=== PATIENT | female | born 1945 | race Caucasian/White ===

== ENCOUNTER → 2018-02-18 | Outpatient (CLI) | payer MEDICARE ==
[2018-02-18 12:08] LABS: HEMATOCRIT 35.6 % (36.0-47.0); HEMOGLOBIN 12.4 g/dl (12.0-15.5); MEAN CORPUSCULAR HEMOGLOBIN 34.1 pg (27.0-33.0); MEAN CORPUSCULAR HGB CONC 34.8 g/dl (32.0-36.5); MEAN CORPUSCULAR VOLUME 97.8 fl (80.0-96.0); PLATELET COUNT, AUTOMATED 133 10^3/uL (150-450); RED BLOOD COUNT 3.64 10^6/uL (4.00-5.40); RED CELL DISTRIBUTION WIDTH 13.4 % (11.5-14.5); WHITE BLOOD COUNT 5.7 10^3/uL (4.0-10.0)
[2018-02-18 12:38] LABS: ALBUMIN 3.8 GM/DL (3.2-5.2); ALBUMIN/GLOBULIN RATIO 1.31 (1.00-1.93); ALKALINE PHOSPHATASE 88 U/L (45-117); ALT/SGPT 31 U/L (12-78); ANION GAP 7 MEQ/L (8-16); AST/SGOT 36 U/L (7-37); BILIRUBIN,TOTAL 0.7 MG/DL (0.2-1.0); BLOOD UREA NITROGEN 10 MG/DL (7-18); CALCIUM LEVEL 8.6 MG/DL (8.8-10.2); CARBON DIOXIDE LEVEL 28 MEQ/L (21-32); CHLORIDE LEVEL 102 MEQ/L (98-107); CREATININE FOR GFR 0.58 MG/DL (0.55-1.30); FOLATE 5.2 NG/ML (>5.4); GLOMERULAR FILTRATION RATE > 60.0 (>39); GLUCOSE, FASTING 130 MG/DL (70-100); IRON (FE) 148 UG/DL (50-170); PERCENT SATURATION 60.9 % (13.2-45.0); PHENYTOIN (DILANTIN) 15.1 UG/ML (10.0-20.0); SODIUM LEVEL 137 MEQ/L (136-145); TOTAL 25(OH) VITAMIN D 31.3 NG/ML (30.0-100.0); TOTAL IRON BINDING CAPACITY 243 UG/DL (250-450); TOTAL PROTEIN 6.7 GM/DL (6.4-8.2); VITAMIN B12 LEVEL 1163 PG/ML (247-911)
== END ==
LOC: M LAB 11:26
DX: D64.9 Anemia, unspecified (principal); E03.9 Hypothyroidism, unspecified
CPT/HCPCS: 80185

== ENCOUNTER 2018-04-14 06:36 | Day surgery (SDC) | payer MEDICARE ==
[2018-04-14] MEDS: NS 1,000 ML IV (07:00)
[2018-04-14] MEDS ORDERED: PROPOFOL 200 MG/20 ML VIAL As Ordered ×4 (07:23→08:44)
[2018-04-14] MEDS ORDERED: LIDOCAINE 1% MDV 20ML VIAL As Ordered (07:24)
== END 2018-04-14 09:31 | disposition home or self-care (01) ==
LOC: M OPP 06:36
DX: Z12.11 Encounter for screening for malignant neoplasm of colon (principal); D12.6 Benign neoplasm of colon, unspecified; D12.0 Benign neoplasm of cecum; R06.83 Snoring; I10 Essential (primary) hypertension; E78.00 Pure hypercholesterolemia, unspecified; Z79.82 Long term (current) use of aspirin; Z79.899 Other long term (current) drug therapy; Z86.69 Personal history of other diseases of the nervous system and sense organs; Z86.73 Personal history of transient ischemic attack (TIA), and cerebral infarction without residual deficits; Z91.89 Other specified personal risk factors, not elsewhere classified
CPT/HCPCS: 45385

== ENCOUNTER → 2019-04-15 | Outpatient (CLI) | payer MEDICARE ==
[~2019-04-15] MED LIST: AMLO2.5T3 PO; ASPI81TA26 PO; ATOR1TAB19 PO; DILA100C PO; DIOV80TA3 PO; KLOR10TA76 PO; LABE10TAB PO; OMEP20CA4 PO; VITA100018 PO; VITA500046 PO
== END ==
LOC: M WUC 13:28
DX: R56.9 Unspecified convulsions (principal)

== ENCOUNTER 2019-05-27 09:05 | Emergency (ER) | payer MEDICARE ==
[~2019-05-27] VITALS: Ht 160 cm; Wt 54.2 kg
[2019-05-27] MEDS ORDERED: LISI-538 (09:16)
[2019-05-27] MEDS ORDERED: PHEN100C (09:16)
[2019-05-27] MEDS ORDERED: OMEP-218 (09:16)
[2019-05-27] MEDS ORDERED: MORPHINE 2 MG/ML 1ML SYRINGE (J2270) IV ONE (09:45)
[2019-05-27] MEDS ORDERED: NS 1,000 ML IV ONE (09:45)
--- NOTE | 2019-05-27 10:14 | REP ---
CT study of the cervical spine without contrast: History: Trauma. Technique: Helical scanning is acquired and overlapping 2 mm high resolution axial images were generated and reviewed at bone and soft tissue window settings. Coronal and sagittal multiplanar re-formations images are generated. CT findings: There is no evidence of cervical spine element fracture. No skull base fracture is seen. Cervical vertebral body heights are preserved. Alignment is normal. Facet joints are normally aligned bilaterally at each cervical level on multiplanar re-formations images. There is no evidence of intraspinal or paraspinal hematoma. No extra vertebral abnormality is seen. There are fairly advanced degenerative spondylosis changes in the cervical spine with straightening and large anterior discogenic osteophytes at C3-4 C4-5 and C6-7. C5-6 disc is fused. Facets are normally aligned. There is some facet arthropathy. There is some vascular calcification. Impression: Advanced degenerative spondylosis, otherwise negative CT study of the cervical spine without contrast. No fracture seen. Electronically Signed by Jean-Pierre Lindquist MD 05/27/2019 10:06 A
[2019-05-27 10:25] LABS: BASO % 0.2 % (0.0-1.0); EOS % 0.4 % (0.0-3.0); HEMATOCRIT 33.7 % (36.0-47.0); LYMPH # 0.7 10^3/uL (1.5-4.5); LYMPH % 13.7 % (24.0-44.0); MEAN CORPUSCULAR HGB CONC 35.6 g/dl (32.0-36.5); MEAN CORPUSCULAR VOLUME 101.2 fl (80.0-96.0); MONO # 0.4 10^3/uL (0.0-0.8); MONO % 8.5 % (0.0-5.0); NEUTROPHILS # 3.9 10^3/uL (1.8-7.7); NEUTROPHILS % 76.2 % (36.0-66.0); PLATELET COUNT, AUTOMATED 104 10^3/uL (150-450); RED BLOOD COUNT 3.33 10^6/uL (4.00-5.40); WHITE BLOOD COUNT 5.1 10^3/uL (4.0-10.0)
--- NOTE | 2019-05-27 10:26 | REP ---
CT BRAIN WITHOUT CONTRAST: HISTORY: Trauma. No comparison brain imaging. FINDINGS: Digital recruiter account manager views are unremarkable. Bone window settings demonstrate no evidence of skull fracture. 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 Visualized paranasal sinuses are clear. Some vascular calcifications noted in the distal carotid arteries. There is moderate diffuse cerebral atrophy. 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 There is no evidence of acute infarction. No intracranial hemorrhage is seen. 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 No acute intracranial abnormality. Electronically Signed by Jean-Pierre Lindquist MD 05/27/2019 04:26 P
[2019-05-27 10:55] LABS: ALBUMIN 3.3 GM/DL (3.2-5.2); ALT/SGPT 15 U/L (12-78); BILIRUBIN,DIRECT 0.3 MG/DL (0.0-0.2); BILIRUBIN,TOTAL 0.7 MG/DL (0.2-1.0); BLOOD UREA NITROGEN 4 MG/DL (7-18); CALCIUM LEVEL 8.6 MG/DL (8.8-10.2); CARBON DIOXIDE LEVEL 26 MEQ/L (21-32); CHLORIDE LEVEL 98 MEQ/L (98-107); CREATININE FOR GFR 0.55 MG/DL (0.55-1.30); GLOMERULAR FILTRATION RATE > 60.0 (>39); GLUCOSE, FASTING 130 MG/DL (70-100); POTASSIUM SERUM 3.6 MEQ/L (3.5-5.1); SODIUM LEVEL 134 MEQ/L (136-145); TOTAL PROTEIN 5.9 GM/DL (6.4-8.2)
--- NOTE | 2019-05-27 11:00 | REP ---
REASON: Pain after trauma. PRIORS: None. There is disc space narrowing and anterior lipping at every level. There is a mild mid thoracic dextroconvex lower thoracolumbar levoconvex curve. The pedicles are intact bilaterally. L1 is transitional. There is no definite evidence of a compression abnormality. IMPRESSION: Likely chronic changes as described above. If there is focal pain at the L1 level consider CT if clinically relevant. Electronically Signed by Luis Gamino DO 05/27/2019 12:17 P
--- NOTE | 2019-05-27 11:03 | REP ---
REASON FOR EXAM: Pain after trauma. The accompanying frontal view of the chest has been compared to a prior examination of 03/21/2016. The frontal view of the chest is unchanged showing no acute disease. There is an old healed proximal left humeral fracture. There is evidence of old healed left 7th rib fractures. There is a subtle cortical irregularity seen involving the anterior end of the left 10th rib. This is near the costochondral junction. IMPRESSION: Possible minimal fracture left 10th rib anteriorly as described above. Correlate clinically for point tenderness. Electronically Signed by Luis Gamino DO 05/27/2019 12:17 P
[2019-05-27 11:39] VITALS: BP 139/75
[2019-05-27] MEDS ORDERED: NORC1TAB7 PO (11:54)
--- NOTE | 2019-05-28 07:31 | ED PDOC ---
Post-Departure Follow-Up dr randall faxed formal report of t spine films for fu Gabo George MD May 28, 2019 07:31
== END 2019-05-27 12:21 | disposition home or self-care (01) ==
LOC: M ED 09:05
DX: E86.0 Dehydration (principal); S22.42XA Multiple fractures of ribs, left side, initial encounter for closed fracture; S61.511A Laceration without foreign body of right wrist, initial encounter; W10.8XXA Fall (on) (from) other stairs and steps, initial encounter; Y92.018 Other place in single-family (private) house as the place of occurrence of the external cause; R56.9 Unspecified convulsions; Z78.0 Asymptomatic menopausal state; Z79.899 Other long term (current) drug therapy; Z79.82 Long term (current) use of aspirin
CPT/HCPCS: 70450; 71101; 72072; 72125; 80048; 80076; 80185; 85025; 96361; 96374; 99284; J2270

== ENCOUNTER → 2022-05-13 | Outpatient (CLI) | payer MEDICARE ==
[~2022-05-13] MED LIST changes: -KLOR10TA76 PO; +LABE100T6 PO; -LABE10TAB PO; +LISI20TA33; +NORC1TAB7 PO; +OMEP-173; +OMEP1CAP73 PO; -OMEP20CA4 PO; +PHEN100C; +POTA-136 PO
[2022-05-13 09:23] LABS: HEMOGLOBIN 11.8 g/dl (12.0-15.5); MEAN CORPUSCULAR HEMOGLOBIN 34.9 pg (27.0-33.0); MEAN CORPUSCULAR HGB CONC 33.7 g/dl (32.0-36.5); MEAN CORPUSCULAR VOLUME 103.6 fl (80.0-96.0); PLATELET COUNT, AUTOMATED 151 10^3/uL (150-450); RED BLOOD COUNT 3.38 10^6/uL (4.00-5.40); WHITE BLOOD COUNT 4.6 10^3/uL (4.0-10.0)
[2022-05-13 10:19] LABS: ALBUMIN 3.5 GM/DL (3.2-5.2); ALT/SGPT 50 U/L (12-78); BILIRUBIN,TOTAL 0.3 MG/DL (0.2-1.0); BLOOD UREA NITROGEN 11 MG/DL (7-18); CARBON DIOXIDE LEVEL 24 MEQ/L (21-32); CHLORIDE LEVEL 107 MEQ/L (98-107); CHOLESTEROL LEVEL 168 MG/DL (<200); CHOLESTEROL RISK RATIO 1.663 (<5); CREATININE FOR GFR 0.68 MG/DL (0.55-1.30); GLOMERULAR FILTRATION RATE > 60.0 (>39); GLUCOSE, FASTING 95 MG/DL (70-100); HDL CHOLESTEROL 101 MG/DL (>40); IRON (FE) 52 UG/DL (50-170); LDL CHOLESTEROL 47 MG/DL (<100); NON-HDL-C 67 MG/DL; PERCENT SATURATION 18.3 % (13.2-45.0); POTASSIUM SERUM 4.2 MEQ/L (3.5-5.1); SODIUM LEVEL 140 MEQ/L (136-145); TOTAL IRON BINDING CAPACITY 284 UG/DL (250-450); TOTAL PROTEIN 6.4 GM/DL (6.4-8.2); TRIGLYCERIDES LEVEL 102 MG/DL (<150)
[2022-05-13 12:11] LABS: HEMOGLOBIN A1c 4.6 %
[2022-05-13 12:29] LABS: TOTAL 25(OH) VITAMIN D 32.7 NG/ML (30.0-100.0)
== END ==
LOC: M LAB 08:45
PROVIDERS: ATTEND Family Medicine
DX: D64.9 Anemia, unspecified (principal); R53.83 Other fatigue; E03.9 Hypothyroidism, unspecified